=== PATIENT | male | born 1940 | race Caucasian/White ===

== ENCOUNTER → 2017-04-29 | Outpatient (CLI) | payer MEDICARE, OTHER | END | disposition home or self-care (01) | LOC: CFH 09:38 | PROVIDERS: ATTEND Internal Medicine Cardiovascular Disease | DX: I27.20 Pulmonary hypertension, unspecified (principal); E78.5 Hyperlipidemia, unspecified; Z87.891 Personal history of nicotine dependence | CPT/HCPCS: 93306 ==

== ENCOUNTER 2018-04-23 08:41 | Day surgery (SDC) | payer MEDICARE, OTHER ==
[~2018-04-23] VITALS: Ht 177.8 cm; Wt 100.0 kg
[~2018-04-23 08:41] MED LIST: AMBR10TA3 PO; ASPI-496 PO; CHOL200074 PO; DILT180C59 PO; FINA5TAB4 PO; FURO-92 PO; IRBE300T16 PO; LATA2.5D3 RIGHTEYE; MULT-224 PO; OMEG-123 PO; SIMV40TA3 PO; TAMS0.4C2 PO; VALS160T3 PO; ZOLP-413 PO
[2018-04-23 09:56] LABS: ALANINE AMINOTRANSFERASE 27 U/L (12-78); ALBUMIN 3.9 g/dL (3.4-5.0); ANION GAP 8 mmol/L (5-15); CALCIUM 9.5 mg/dL (8.5-10.1); CHLORIDE 107 mmol/L (98-107); CREATININE 1.17 mg/dL (0.7-1.3)
[2018-04-23 09:58] LABS: ALKALINE PHOSPHATASE 65 U/L (45-117); TOTAL PROTEIN 6.9 g/dL (6.4-8.2)
[2018-04-23] MEDS ORDERED: LACTATED RINGERS 1,000 ML IV SCH (10:00)
[2018-04-23] MEDS ORDERED: MIDAZOLAM 1 MG/ML, 2ML IV PRN (12:00)
[2018-04-23] MEDS ORDERED: ONDANSETRON 2MG/ML, 2ML IV PRN (12:00)
[2018-04-23] MEDS ORDERED: FENTANYL PF 100 MCG/2ML IV PRN (12:00)
== END 2018-04-23 12:55 | disposition home or self-care (01) ==
LOC: OUT 08:41
PROVIDERS: ATTEND Internal Medicine Gastroenterology
DX: D12.3 Benign neoplasm of transverse colon (principal); K63.5 Polyp of colon; E78.5 Hyperlipidemia, unspecified; I11.0 Hypertensive heart disease with heart failure; I50.9 Heart failure, unspecified; Z86.010 Personal history of colon polyps; Z79.899 Other long term (current) drug therapy; Z79.82 Long term (current) use of aspirin
CPT/HCPCS: 36415; 45380; 45385; 80053; 88305; 93005; J7120